=== PATIENT | female | born 1960 | race African-American/Black ===

== ENCOUNTER 2019-02-12 01:15 | Emergency (ER) | payer BC ==
[~2019-02-12] VITALS: Ht 165.1 cm; Wt 105.0 kg
[2019-02-12] MEDS ORDERED: KETOROLAC 15MG/ML VIAL IM ONE (03:15)
[2019-02-12] MEDS ORDERED: ACETAMINOPHEN 325MG TABLET PO ONE (04:15)
[2019-02-12 05:28] VITALS: BP 140/69
== END 2019-02-12 05:30 | disposition home or self-care (01) ==
LOC: ER 01:15
DX: M25.512 Pain in left shoulder (principal); I10 Essential (primary) hypertension; Z98.51 Tubal ligation status; Z88.8 Allergy status to other drugs, medicaments and biological substances; Z98.890 Other specified postprocedural states; V43.52XA Car driver injured in collision with other type car in traffic accident, initial encounter; Y93.89 Activity, other specified; Y92.488 Other paved roadways as the place of occurrence of the external cause
CPT/HCPCS: 73030; 96372; 99283; J1885; Z7610; A4565